=== PATIENT | female | born 1930 | race Hispanic/Latino ===

== ENCOUNTER 2019-12-30 05:55 | Day surgery (SDC) | payer OTHER ==
[~2019-12-30] VITALS: Ht 157.5 cm; Wt 54.4 kg
[2019-12-30] MEDS ORDERED: SODIUM CHLORIDE 0.9% 1000ML 1,000 ML IV ONE (06:20)
[2019-12-30 07:57] VITALS: BP 158/70
[2019-12-30] MEDS ORDERED: BIOTIN (08:25)
[2019-12-30] MEDS ORDERED: SIMV40TA2 PO (08:25)
[2019-12-30] MEDS ORDERED: COQ10 (08:25)
[2019-12-30] MEDS ORDERED: VITAMIN E (08:25)
[2019-12-30] MEDS ORDERED: B COMPLEX (08:25)
[2019-12-30] MEDS ORDERED: CARV3.12 PO (08:25)
[2019-12-30] MEDS ORDERED: [UNRECOGNIZED DRUG - OTHER] (08:25)
[2019-12-30] MEDS ORDERED: VITAMIN B12 (08:25)
[2019-12-30] MEDS ORDERED: AMLO2.5T5 PO (08:25)
[2019-12-30] MEDS ORDERED: FLUO10CA21 PO (08:25)
[2019-12-30] MEDS ORDERED: LEVO75TA10 PO (08:25)
[2019-12-30] MEDS ORDERED: FOLIC ACID (08:25)
[2019-12-30] MEDS ORDERED: VITAMIN C (08:25)
[2019-12-30] MEDS ORDERED: CALCIUM MAG ZINC (08:25)
[2019-12-30] MEDS ORDERED: FISH OIL (08:25)
[2019-12-30] MEDS ORDERED: OMEP40CA13 PO (08:25)
[2019-12-30] MEDS ORDERED: VITAMIN D3 (08:25)
[2019-12-30] MEDS ORDERED: GLYCOPYRROLATE 0.2 MG/ML 5 ML VIAL ONE (08:39)
[2019-12-30] MEDS ORDERED: LIDOCAINE HCL-MPF 2% 5ML VIAL ONE (08:39)
[2019-12-30] MEDS ORDERED: PROPOFOL 10 MG/ML 20ML VIAL IV ONE (08:39)
[2019-12-30 09:01] VITALS: BP 131/48
[2019-12-30 09:08] VITALS: BP 130/55
[2019-12-30 09:13] VITALS: BP 130/55
[2019-12-30 09:17] VITALS: BP 136/78
[2019-12-30 09:24] VITALS: BP 142/37
== END 2019-12-30 09:40 | disposition home or self-care (01) ==
LOC: ENDO 05:55 → DAH 05:55 → ENDO 09:40
PROVIDERS: ATTEND Internal Medicine Gastroenterology
DX: K92.1 Melena (principal); K31.811 Angiodysplasia of stomach and duodenum with bleeding; K29.50 Unspecified chronic gastritis without bleeding; I10 Essential (primary) hypertension; E03.9 Hypothyroidism, unspecified; M19.90 Unspecified osteoarthritis, unspecified site; E78.5 Hyperlipidemia, unspecified; Z79.899 Other long term (current) drug therapy; Z85.3 Personal history of malignant neoplasm of breast; Z98.890 Other specified postprocedural states; Z82.49 Family history of ischemic heart disease and other diseases of the circulatory system
CPT/HCPCS: 43239; 43255; 88305; 88342; A4215; A4221; A4222; A4223; A4606; A4620; A4663; J2704; J3490 ×2; J7030; 45388